=== PATIENT | female | born 2000 | race Two or more races ===

== ENCOUNTER 2019-08-21 11:28 | Inpatient (IN) | payer OTHER ==
[~2019-08-21] VITALS: Ht 172.7 cm; Wt 64.4 kg
[2019-09-06] MEDS ORDERED: PRENATAL CAPLE1 EAC1 PO (11:22)
[2019-09-06] MEDS ORDERED: IRON18 MG PO (11:23)
== END 2019-09-09 12:11 | disposition home or self-care (01) | DRG 768 ==
LOC: OB/GYN 09-02 09:45 → LDR 09-07 01:14 → OB/GYN 09-07 08:10
PROVIDERS: ADMIT Obstetrics & Gynecology Maternal & Fetal Medicine
PROC: 10E0XZZ Delivery of Products of Conception, External Approach (ICD-10-PCS; principal; 2019-09-07)
PROC: 0DQR0ZZ Repair Anal Sphincter, Open Approach (ICD-10-PCS; 2019-09-07)
PROC: 0W8NXZZ Division of Female Perineum, External Approach (ICD-10-PCS; 2019-09-07)
PROC: 10907ZC Drainage of Amniotic Fluid, Therapeutic from Products of Conception, Via Natural or Artificial Opening (ICD-10-PCS; 2019-09-07)
PROC: 3E033VJ Introduction of Other Hormone into Peripheral Vein, Percutaneous Approach (ICD-10-PCS; 2019-09-07)
PROC: 4A1HXCZ Monitoring of Products of Conception, Cardiac Rate, External Approach (ICD-10-PCS; 2019-09-07)
DX: O70.21 Third degree perineal laceration during delivery, IIIa (principal); Z37.0 Single live birth; Z3A.39 39 weeks gestation of pregnancy; Z22.330 Carrier of Group B streptococcus

== ENCOUNTER → 2019-08-30 | Outpatient (CLI) | payer OTHER | END | disposition home or self-care (01) | LOC: NST 19:55 | DX: Z34.83 Encounter for supervision of other normal pregnancy, third trimester (principal) ==

== ENCOUNTER 2019-09-01 11:30 | Outpatient (CLI) | payer OTHER | END 2019-09-01 12:52 | disposition home or self-care (01) | LOC: NST 11:30 | DX: Z34.83 Encounter for supervision of other normal pregnancy, third trimester (principal) ==

== ENCOUNTER 2019-09-04 10:53 | Outpatient (CLI) | payer OTHER | END 2019-09-04 11:35 | disposition home or self-care (01) | LOC: NST 10:53 | DX: Z34.83 Encounter for supervision of other normal pregnancy, third trimester (principal) ==

== ENCOUNTER → 2019-09-06 | Outpatient (CLI) | payer OTHER ==
[~2019-09-06] MED LIST: IRON18 MG PO; PRENATAL CAPLE1 EAC1 PO
== END | disposition home or self-care (01) ==
LOC: NST 10:43
DX: Z34.83 Encounter for supervision of other normal pregnancy, third trimester (principal)